=== PATIENT | male | born 1965 | race Two or more races ===

== ENCOUNTER 2024-03-13 13:53 | Inpatient (IN) | payer MEDICAID, OTHER ==
[~2024-03-13] VITALS: Ht 172.7 cm; Wt 73.9 kg
[2024-03-13 15:06] LABS: Basophils # (auto) 0.1 10 ^3/uL (0-0.2); Eosinophils % (auto) 0.4 % (0.0-7.0); Hemoglobin 13.8 g/dL (13.5-17.5); Monocytes # (auto) 1.3 10 ^3/uL (0-1.3)
[2024-03-13 15:07] LABS: Basophils % (auto) 0.5 % (0.0-2.0); Eosinophils # (auto) 0.1 10 ^3/uL (0-0.8); Hematocrit 42.8 % (41.0-53.0); Lymphocytes # (auto) 2.5 10 ^3/uL (0.4-5.4); Lymphocytes % (auto) 21.9 % (10.0-50.0); Mean Corpuscular Hemoglobin 26.1 pg (28.0-32.0); Mean Corpuscular Hgb Conc. 32.1 g/dL (32.0-36.0); Mean Corpuscular Volume 81.1 fL (80.0-100.0); Monocytes % (auto) 11.5 % (0.0-12.0); Neutrophils # (auto) 7.6 10 ^3/uL (1.6-8.6); Neutrophils % (auto) 65.7 % (37.0-80.0); Nucleated Red Blood Cells % 0.2 %; Red Blood Cells 5.28 10^6/uL (4.5-5.90); Red Cell Distribution Width 14.4 % (11.8-14.3); White Blood Cell 11.6 10^3/uL (4.4-10.8)
[2024-03-13 15:25] LABS: Alanine Aminotransferase 152 U/L (7-40); Albumin 3.8 g/dL (3.2-4.8); Alkaline Phosphatase 126 U/L (46-116); Anion Gap 6 (5-15); Aspartate Aminotransferase 159 U/L (13-40); BUN/Creatinine Ratio 9.7 (10.0-20.0); Bilirubin, Total 0.4 mg/dL (0.2-1.0); Blood Urea Nitrogen 9 mg/dL (9-23); Calcium 8.9 mg/dL (8.5-10.1); Carbon Dioxide 29 mmol/L (20-30); Chloride 98 mmol/L (98-107); Glucose 150 mg/dL (74-106); Potassium 4.3 mmol/L (3.5-5.1); Sodium 133 mmol/L (136-145); Total Protein 6.8 g/dL (5.7-8.2)
[2024-03-13 16:15] VITALS: PULSE 81; RESP 31; O2SAT 88
[2024-03-13] MEDS: ASPirin 81 mg TAB PO ONE (16:19)
[2024-03-13] MEDS: SODIUM CHLORIDE 0.9% 1,000 ML IV ONE (16:30)
[2024-03-13] MEDS: NITROGLYCERIN 2% OINT 1GM PKG TD ONE (17:20)
[2024-03-13 17:39] LABS: Amphetamine Screen, Urine Neg (NEGATIVE)
[2024-03-13 17:40] LABS: Barbiturate Scree,Urine Neg (NEGATIVE); Benzodiazephine Screen, Urine Neg (NEGATIVE); Cannabinoid Screen, Urine Neg (NEGATIVE); Cocaine Screen, Urine Neg (NEGATIVE); Opiate Scree,Urine Neg (NEGATIVE); Phencyclidine Screen, Urine Neg (NEGATIVE)
[2024-03-13 19:30] VITALS: PULSE 81; RESP 16; O2SAT 97
[2024-03-13] MEDS: IOHEXOL 350 MG/ML 100ML IJ ONE (20:15)
[2024-03-13] MEDS ORDERED: ONDANSETRON HCL 4 MG/2 ML VIAL IV PRN (22:00)
[2024-03-13] MEDS ORDERED: DOCUSATE SOD 100 MG CAP PO PRN (22:00)
[2024-03-13] MEDS: SODIUM CHLORIDE 0.9% 1,000 ML IV SCH (22:38)
[2024-03-13] MEDS: IBUPROFEN 600 MG TAB PO PRN (22:48)
[2024-03-13] MEDS ORDERED: MORPHINE SULFATE INJ 2 MG/ml SYRG IV PRN (23:15)
[2024-03-13] MEDS ORDERED: NITROGLYCERIN 0.4 MG SL TAB SL PRN (23:15)
[2024-03-14] VITALS (9 sets, daily range): BP systolic 97–114; BP diastolic 59–72; PULSE 64–94; RESP 14–19; TEMP 98–99.8; O2SAT 94–98
[2024-03-14] MEDS ORDERED: ACET1CAP14 PO (02:01)
[2024-03-14 06:14] LABS: Basophils # (auto) 0.1 10 ^3/uL (0-0.2); Basophils % (auto) 0.5 % (0.0-2.0); Hemoglobin 12.8 g/dL (13.5-17.5); Mean Corpuscular Hemoglobin 26.1 pg (28.0-32.0); Monocytes # (auto) 1.4 10 ^3/uL (0-1.3)
[2024-03-14 06:16] LABS: Eosinophils # (auto) 0 10 ^3/uL (0-0.8); Eosinophils % (auto) 0.4 % (0.0-7.0); Hematocrit 39.6 % (41.0-53.0); Lymphocytes # (auto) 2.4 10 ^3/uL (0.4-5.4); Lymphocytes % (auto) 20.7 % (10.0-50.0); Mean Corpuscular Hgb Conc. 32.3 g/dL (32.0-36.0); Mean Corpuscular Volume 80.7 fL (80.0-100.0); Monocytes % (auto) 12.5 % (0.0-12.0); Neutrophils # (auto) 7.5 10 ^3/uL (1.6-8.6); Neutrophils % (auto) 65.9 % (37.0-80.0); Nucleated Red Blood Cells % 0.1 %; Red Cell Distribution Width 14.4 % (11.8-14.3); White Blood Cell 11.5 10^3/uL (4.4-10.8)
[2024-03-14 06:45] LABS: Alanine Aminotransferase 146 U/L (7-40); Alkaline Phosphatase 114 U/L (46-116); Anion Gap 9 (5-15); Aspartate Aminotransferase 137 U/L (13-40); Blood Urea Nitrogen 7 mg/dL (9-23); Calcium 8.8 mg/dL (8.7-10.4); Carbon Dioxide 23 mmol/L (20-30); Chloride 103 mmol/L (98-107); Glucose 100 mg/dL (74-106); Potassium 4.1 mmol/L (3.5-5.1); Sodium 135 mmol/L (136-145)
[2024-03-14 06:46] LABS: Bilirubin, Total 0.5 mg/dL (0.2-1.0); Total Protein 6.5 g/dL (5.7-8.2)
[2024-03-14 06:49] LABS: Albumin 3.5 g/dL (3.2-4.8)
[2024-03-14] MEDS: ASPirin 81 mg TAB PO SCH (09:22)
[2024-03-15] VITALS (9 sets, daily range): BP systolic 100–114; BP diastolic 54–73; PULSE 64–92; RESP 16–20; TEMP 98.1–99; O2SAT 92–96
[2024-03-16 05:00] VITALS: BP 104/67; PULSE 95; RESP 20; TEMP 99.1; O2SAT 96
[2024-03-16 08:00] VITALS: BP 106/71; PULSE 82; PULSE 86; RESP 20; TEMP 98.2; O2SAT 93
[2024-03-16 12:00] VITALS: BP 112/68; PULSE 68; RESP 20; TEMP 98.8; O2SAT 95
[2024-03-16 16:00] VITALS: BP 108/59; PULSE 83; RESP 20; TEMP 99.3; O2SAT 94
[2024-03-16 20:00] VITALS: PULSE 84
[2024-03-16 21:00] VITALS: BP 99/60; PULSE 81; RESP 18; TEMP 97.7; O2SAT 95
[2024-03-17] VITALS (7 sets, daily range): BP systolic 95–112; BP diastolic 62–74; PULSE 75–89; RESP 18; TEMP 97.7–99; O2SAT 93–97
[2024-03-17] MEDS: HYDROcodone-ACET 5/325MG TAB PO PRN (21:28)
[2024-03-18] VITALS (7 sets, daily range): BP systolic 96–120; BP diastolic 56–88; PULSE 69–88; RESP 16–20; TEMP 97.5–98.9; O2SAT 95–98
[2024-03-19 01:00] VITALS: BP 107/66; PULSE 78; RESP 20; TEMP 97.7; O2SAT 97
[2024-03-19 05:00] VITALS: BP 109/77; PULSE 97; RESP 20; TEMP 97.9; O2SAT 96
[2024-03-19 07:30] LABS: Anion Gap 5 (5-15); Carbon Dioxide 27 mmol/L (20-30); Chloride 101 mmol/L (98-107); Potassium 4.7 mmol/L (3.5-5.1); Sodium 133 mmol/L (136-145)
[2024-03-19 07:32] LABS: Calcium 9.5 mg/dL (8.5-10.1)
[2024-03-19 07:34] LABS: Basophils # (auto) 0.1 10 ^3/uL (0-0.2); Eosinophils # (auto) 0 10 ^3/uL (0-0.8); Hemoglobin 12.9 g/dL (13.5-17.5); Monocytes # (auto) 0.7 10 ^3/uL (0-1.3)
[2024-03-19 07:36] LABS: Basophils % (auto) 0.7 % (0.0-2.0); Blood Urea Nitrogen 8 mg/dL (9-23); Eosinophils % (auto) 0.3 % (0.0-7.0); Glucose 116 mg/dL (74-106); Hematocrit 40.2 % (41.0-53.0); Lymphocytes # (auto) 2.1 10 ^3/uL (0.4-5.4); Lymphocytes % (auto) 18.4 % (10.0-50.0); Mean Corpuscular Hemoglobin 25.8 pg (28.0-32.0); Mean Corpuscular Hgb Conc. 32.1 g/dL (32.0-36.0); Mean Corpuscular Volume 80.2 fL (80.0-100.0); Monocytes % (auto) 6.2 % (0.0-12.0); Neutrophils # (auto) 8.4 10 ^3/uL (1.6-8.6); Neutrophils % (auto) 74.4 % (37.0-80.0); Nucleated Red Blood Cells % 0.4 %; Red Blood Cells 5.02 10^6/uL (4.5-5.90); Red Cell Distribution Width 14.4 % (11.8-14.3); White Blood Cell 11.3 10^3/uL (4.4-10.8)
[2024-03-19 08:00] VITALS: PULSE 78; RESP 19; O2SAT 100
[2024-03-19 08:55] VITALS: BP 103/67; PULSE 68; RESP 19; TEMP 98; O2SAT 100
[2024-03-19 12:34] VITALS: BP 108/76; PULSE 81; RESP 18; TEMP 98.3; O2SAT 96
[2024-03-19 12:53] VITALS: BP 108/76; PULSE 81; RESP 18; TEMP 98.3; O2SAT 96
== END 2024-03-19 13:50 | disposition home or self-care (01) | DRG 426 ==
LOC: ER 13:53 → TELE 23:03 → TELE-WESTW 23:03
PROVIDERS: ADMIT Nurse Practitioner Family; ATTEND Internal Medicine Pulmonary Disease
DX: E87.1 Hypo-osmolality and hyponatremia (principal); D72.829 Elevated white blood cell count, unspecified; R42 Dizziness and giddiness; K22.9 Disease of esophagus, unspecified; F17.200 Nicotine dependence, unspecified, uncomplicated; J98.11 Atelectasis; Z83.3 Family history of diabetes mellitus; Z79.899 Other long term (current) drug therapy
CPT/HCPCS: 36415; 70450; 70551; 71045; 71275; 80048; 80053; 80307; 82962; 83036; 83880; 84484; 85025; 85379; 93005; 93306; 96360; 96361; G0378

== ENCOUNTER 2024-09-29 17:12 | Inpatient (IN) | payer MEDICAID ==
[~2024-09-29] VITALS: Ht 172.7 cm; Wt 73.5 kg
[~2024-09-29 17:12] MED LIST: ACET1CAP14 PO
--- NOTE | 2024-09-29 18:06 | ED.PDOC ---
General HPI Comments HPI: Poor Historian. 58-year-old male presents to the emergency department with with three day history of dribbling in his urine and some urgency but he denies any associated pain. Patient denies any other acute symptoms. Patient is not on any medications. Past Medcial History: Denies any Past Surgical History: Denies any REVIEW OF SYSTEMS: CONSTITUTIONAL: Denies acute: fever, diaphoresis, chills, generalized weakness. HEAD: Denies acute: headache, photophobia Eyes: Denies acute: Double vision, vision loss, eye pain, eye discharge. EARS: Denies acute: tinnitus, hearing loss, ear discharge, ear pain, THROAT: Denies acute: sore throat, swelling, difficulty swallowing , pain with swallo wing, change in voice. NECK: Denies acute: neck pain, neck swelling, stiff neck. HEART: Denies acute : chest pain, palpitations, LUNGS: Denies acute: SOB, wheezing, cough, hemoptysis ABDOMEN: Denies acute: abdominal pain, Nausea, Vomiting, diarrhea, melena , hematemesis, hematochezia SKIN: Denies acute: rash, redness, lesions, itchiness. EXTREMITIES: Denies acute: calf pain, numbness, tingling, weakness, denies pain in extremity. Denies acute: Low back pain. Neuro: Denies acute: focal neurological deficit, motor or sensory focal neurological deficit, tremors, seizure like activity, confusion, dizziness, change in mental status, loss of bowel or bladder function, cauda equina like symptoms. : Denies acute: dysuria, hematuria, flank pain, PSYCH: Denies acute: hallucination, suicidal ideation, homicidal ideation. PHYSICAL EXAM: General: no acute distress, awake and alert. Head: normocephalic, atraumatic. Neck: supple, trachea is midline, no swelling. Throat: Normal phonation. Eyes:, no erythema, no purulent discharge, no proptosis, no icterus. Heart: regular rate, regular rhythm, no significant murmur appreciated. Lungs: no apparent respiratory distress, Able to speak in full sentences. No wheezing, no rhonchi, no crackles. No stridors Clear to auscultation bilaterally. Abdomen: non tender to palpation, non distended, soft, no guarding, no rebound, + bowel sounds. Neuro: Awake, Alert, oriented to name, self, situation, follows commands GCS=15. Speech is normal. Skin: no petechia, no purpura, no cyanosis, non-pale, not jaundice. Lower extremities: --no - Pitting edema no deformity, no focal swelling, no calf TTP. Makes eye contact. moves all four extremities. Face: no apparent facial droop. Ambulating in the ED independently. Chief Complaint: Urinary Time Seen by MD: 17:52 Primary Care Provider: NONE Reviewed notes: Nurses Notes, Allergies Allergies: Coded Allergies: NO KNOWN ALLERGIES (Unverified , 03/13/24) Home Meds Reported Medications Acetaminophen (Tylenol) 325 Mg Cap, 325 MG PO, CAP 03/14/24 Information Source: Patient Past Medical History PAST MEDICAL HISTORY: Denies Surgical History: Denies all surgeries Family History Family History: Unknown Social History Smoker: Non-Smoker Alcohol: Denies ETOH Use Drugs: Denies Drug Use Lives In: Home Was a procedure done? Was a procedure done?: No Differential Diagnosis Kidney stone (Female): N/A Urinary Problem (Male): Bladder Outlet, Bladder Obstruction, Epididymitis, Prostatitis, Plelonephritis, Post op Complications, Renal Failure, Urethritis, Urinary Retention, Urolithiasis, UTI X-Ray, Labs, Meds, VS Vital Signs Date Time Temp Pulse Resp B/P (MAP) Pulse Ox O2 Delivery O2 Flow Rate FiO2 09/29/24 18:00 98.0 89 18 151/93 (112) 97 Lab Test 09/29/24 19:43 Range/Units White Blood Count 23.1 H 4.4-10.8 10^3/uL Red Blood Count 4.69 4.5-5.90 10^6/uL Hemoglobin 12.9 L 13.5-17.5 g/dL Hematocrit 38.6 L 41.0-53.0 % Mean Corpuscular Volume 82.2 80.0-100.0 fL Mean Corpuscular Hemoglobin 27.6 L 28.0-32.0 pg Mean Corpuscular Hemoglobin Concent 33.5 32.0-36.0 g/dL Red Cell Distribution Width 13.8 11.8-14.3 % Platelet Count 143 140-450 10^3/uL Mean Platelet Volume 10.7 6.9-10.8 fL Neutrophils (%) (Auto) 87.8 H 37.0-80.0 % Lymphocytes (%) (Auto) 6.9 L 10.0-50.0 % Monocytes (%) (Auto) 5.2 0.0-12.0 % Eosinophils (%) (Auto) 0.0 0.0-7.0 % Basophils (%) (Auto) 0.1 0.0-2.0 % Neutrophils # (Auto) 20.3 H 1.6-8.6 10 ^3/uL Lymphocytes # (Auto) 1.6 0.4-5.4 10 ^3/uL Monocytes # (Auto) 1.2 0-1.3 10 ^3/uL Eosinophils # (Auto) 0 0-0.8 10 ^3/uL Basophils # (Auto) 0 0-0.2 10 ^3/uL Nucleated Red Blood Cells 0.0 % Sodium Level 121 L 136-145 mmol/L Potassium Level 4.5 3.5-5.1 mmol/L Chloride Level 89 L 98-107 mmol/L Carbon Dioxide Level 23 20-31 mmol/L Anion Gap 9 5-15 Blood Urea Nitrogen 15 9-23 mg/dL Creatinine 0.99 0.700-1.30 mg/dL Glomerular Filtration Rate Calc 87 >90 mL/min BUN/Creatinine Ratio 15.2 10.0-20.0 Serum Glucose 146 H 74-106 mg/dL Lactic Acid Level 1.8 0.4-2.0 mmol/L Calcium Level 9.8 8.7-10.4 mg/dL Total Bilirubin 1.0 0.2-1.0 mg/dL Aspartate Amino Transferase (AST) 40 13-40 U/L Alanine Aminotransferase (ALT) 34 7-40 U/L Alkaline Phosphatase 75 46-116 U/L Total Protein 7.5 5.7-8.2 g/dL Albumin 4.9 H 3.2-4.8 g/dL [address] [address] Ph: [phone] DIAGNOSTIC IMAGING Diagnostic Imaging Report : [id number] Signed PATIENT: JASE BAGLEYACCT: [id number] UNIT: [id number] : 1965 LOC: ER ROOM / BED: / AGE / SEX: 58 / M ADM STATUS: REG ER SERVICE 01 ORDERING PHYSICIAN: BRITANY ROBERTSON DO PROCEDURE(s): ABPL - CT AB PEL WO CON-NO ORAL OR IV REASON: decreased urniary output ORDER NUMBER(s): [id number], ACCESSION NUMBER(s): [id number] Exam: CT CT AB PEL WO CON-NO ORAL OR IV History: decreased urniary output Comparison Study: None Technique: Multidetector spiral CT of the abdomen and pelvis was performed from lung bases to pubic symphysis. Imaging was performed without IV contrast. Axial, coronal and sagittal multiplanar reformats were obtained from the axial data set by the technologist. Radiation dose : Abdomen/Pelvis: CTDIvol 10 mGy, DLP 616.31 mGy*cm. Findings: Evaluation of solid organs is limited due to lack of intravenous contrast use. Lung Bases: No acute or significant lung base finding. Normal heart size. No pleural or pericardial effusion. Liver: Left hepatic cyst. Gallbladder and biliary Tree: Unremarkable Spleen: Unremarkable Pancreas: The pancreas is grossly normal in appearance. Adrenal Glands: Unremarkable Kidneys: Moderate bilateral hydronephrosis. No nephrolithiasis. Bladder: Markedly distended. Bilateral large bladder diverticulum. Bowel: The stomach is grossly normal in appearance. Small bowel and colon are normal in caliber and distribution. The appendix is not visualized; however, no secondary findings of acute appendicitis identified. Ascites: Absent Lymphadenopathy: No mesenteric, retroperitoneal or periportal lymphadenopathy. Abdominal wall and Mesentery: Unremarkable. Vasculature: The visualized abdominal aorta is normal in size and caliber. Evaluation of abdominal and pelvic vessels is limited due to lack of intravenous contrast. Pelvic Organs: Prostate is enlarged. Musculoskeletal: No aggressive focal bony lesions, acute fractures or dislocation. IMPRESSION: 1. Markedly distended bladder. Bilateral bladder diverticula. Moderate hydronephrosis. Prostatomegaly. Consider bladder outlet obstruction. Left hepatic cyst. Radiation optimization: All CT scans at this facility use at least one of these dose optimization techniques: Automated exposure control mA and/or kV adjustment per patient size (includes targeted exams where dose is matched to clinical indication) or iterative reconstruction. HS:Y ATED BY: DARLINE ROBLES MD DICTATED DATE/TIME: 09/29/241842 SIGNED BY: DARLINE ROBLES MD SIGNED DATE/TIME: 09/29/241842 CC: Time of 1ST Reevaluation: 22:31 Reevaluation 1ST: Stable Patient Education/Counseling: Diagnosis, Treatment Family Education/Counseling: Diagnosis, Treatment Comments Patient presented with the above HPI.--urinary complaints----workup was init iated. patient was found with the above mentioned diagnosis. Patient was given: Fluids, Rocephin in the presence of leukocytosis, Witt catheter was ordered. Patient ED course and VS have been stabilized. Patient has been reassessed in the ED and remained in a stable condition. Pertinent incidental findings were discussed with the patient and/or family. Patient/family voices understanding and is agreeable with plan. Patient has been observed in the ED adequate length of time to insure improvement/stability. patient was admitted to the medicine team for further evaluation and treatment of their presentation. All the reports of any imaging studies that were ordered by myself were reviewed by myself. Departure 1 Departure Time of Disposition: 19:14 Impression: Primary Impression: Acute urinary retention Additional Impressions: Hydronephrosis Enlarged prostate Hepatic cyst Leukocytosis, unspecified Hyponatremia Disposition: ADMITTED INPATIENT Condition: Guarded Discharged With: Self Critical Care Note Critical Care Time?: Yes (45 min-critical care time only) Heart Score Heart Score: Heart Score Response (Comments) Value History N/A 0 EKG N/A 0 Age N/A 0 Risk Factors N/A 0 Troponin N/A 0 Total 0 BRITANY ROBERTSON DO Sep 29, 2024 18:06
--- NOTE | 2024-09-29 18:45 | DVH ---
Exam: CT CT AB PEL WO CON-NO ORAL OR IV History: decreased urniary output Comparison Study: None Technique: Multidetector spiral CT of the abdomen and pelvis was performed from lung bases to pubic symphysis. Imaging was performed without IV contrast. Axial, coronal and sagittal multiplanar reform ats were obtained from the axial data set by the technologist. Radiation dose : Abdomen/Pelvis: CTDIvol 10 mGy, DLP 616.31 mGy*cm. Findings: Evaluation of solid organs is limited due to lack of intravenous contrast use. Lung Bases: No acute or significant lung base finding. Normal heart size. No pleural or pericardial effusion. Liver: Left hepatic cyst. Gallbladder and biliary Tree: Unremarkable Spleen: Unremarkable Pancreas: The pancreas is grossly normal in appearance. Adrenal Glands: Unremarkable Kidneys: Moderate bilateral hydronephrosis. No nephrolithiasis. Bladder: Markedly distended. Bilateral large bladder diverticulum. Bowel: The stomach is grossly normal in appearance. Small bowel and colon are normal in caliber and d istribution. The appendix is not visualized; however, no secondary findings of acute appendicitis id entified. Ascites: Absent Lymphadenopathy: No mesenteric, retroperitoneal or periportal lymphadenopathy. Abdominal wall and Mesentery: Unremarkable. Vasculature: The visualized abdominal aorta is normal in size and caliber. Evaluation of abdominal a nd pelvic vessels is limited due to lack of intravenous contrast. Pelvic Organs: Prostate is enlarged. Musculoskeletal: No aggressive focal bony lesions, acute fractures or dislocation. IMPRESSION: 1. Markedly distended bladder. Bilateral bladder diverticula. Moderate hydronephrosis. Prostatomeg jesu. Consider bladder outlet obstruction. Left hepatic cyst. Radiation optimization: All CT scans at this facility use at least one of these dose optimization almaz hniques: Automated exposure control mA and/or kV adjustment per patient size (includes targeted exams where dose is matched to clinical indication) or iterative reconstruction. HS:Y
[2024-09-29 20:10] LABS: Basophils # (auto) 0 10 ^3/uL (0-0.2); Basophils % (auto) 0.1 % (0.0-2.0); Eosinophils # (auto) 0 10 ^3/uL (0-0.8); Hematocrit 38.6 % (41.0-53.0); Hemoglobin 12.9 g/dL (13.5-17.5); Lymphocytes # (auto) 1.6 10 ^3/uL (0.4-5.4); Lymphocytes % (auto) 6.9 % (10.0-50.0); Mean Corpuscular Hemoglobin 27.6 pg (28.0-32.0); Mean Corpuscular Hgb Conc. 33.5 g/dL (32.0-36.0); Mean Corpuscular Volume 82.2 fL (80.0-100.0); Monocytes # (auto) 1.2 10 ^3/uL (0-1.3); Monocytes % (auto) 5.2 % (0.0-12.0); Neutrophils # (auto) 20.3 10 ^3/uL (1.6-8.6); Neutrophils % (auto) 87.8 % (37.0-80.0); Platelet Count (auto) 143 10^3/uL (140-450); Red Blood Cells 4.69 10^6/uL (4.5-5.90); Red Cell Distribution Width 13.8 % (11.8-14.3); White Blood Cell 23.1 10^3/uL (4.4-10.8)
[2024-09-29 20:27] LABS: Alanine Aminotransferase 34 U/L (7-40); Albumin 4.9 g/dL (3.2-4.8); Alkaline Phosphatase 75 U/L (46-116); Anion Gap 9 (5-15); Aspartate Aminotransferase 40 U/L (13-40); BUN/Creatinine Ratio 15.2 (10.0-20.0); Blood Urea Nitrogen 15 mg/dL (9-23); Calcium 9.8 mg/dL (8.7-10.4); Carbon Dioxide 23 mmol/L (20-31); Chloride 89 mmol/L (98-107); Glucose 146 mg/dL (74-106); Potassium 4.5 mmol/L (3.5-5.1); Sodium 121 mmol/L (136-145); Total Protein 7.5 g/dL (5.7-8.2)
[2024-09-29] MEDS: ENOXAPARIN SOD 40 MG/0.4 ML SYRINGE SC SCH (21:00)
[2024-09-29] MEDS ORDERED: MORPHINE SULFATE INJ 2 MG/ml SYRG IV PRN ×2 (21:00)
[2024-09-29] MEDS ORDERED: NITROGLYCERIN 0.4 MG SL TAB SL PRN (21:00)
[2024-09-29] MEDS ORDERED: ONDANSETRON HCL 4 MG/2 ML VIAL IV PRN ×2 (21:00→23:00)
[2024-09-29] MEDS: SODIUM CHLOR 0.9% PF (SALINE LOCK) 10ML VIAL/SYR IV SCH (22:00)
[2024-09-29] MEDS: SODIUM CHLORIDE 0.9% 1,000 ML IV ONE (22:30)
--- NOTE | 2024-09-29 23:08 | DVHHPRES ---
History of Present Illness Resident Creating Document: MOUSTAPHA BRANCH RESIDENT History of Present Illness Patient is 58 years old male with no significant past medical history came with a complaint of dysuria and dribbling of urine for 3 days. As per patient and his daughter patient has been having dysuria for last 3 days. Patient also reported difficulty in urination, urgency, frequency, hesitancy and also dribbling of urine for the same duration. Patient also had urine incontinence while waiting in the ER. Patient also reported constipation last few days. Patient denied any fever, diarrhea, chest pain, shortness of breath, acute joint pain or swelling, dysarthria. Initial lab workup revealed leukocytosis WBC 23.1, hyponatremia sodium 121. Patient also reported 1 episode of vomiting after coming to the hospital which was watery, no blood. CT abdomen and pelvis revealed-Markedly distended bladder. Bilateral bladder diverticula. Moderate hydronephrosis. Prostatomegaly. Consider bladder outlet obstruction. Left hepatic cyst. Witt's catheter was inserted and drained 2000 mL of urine shortly after catheterization. Past Medical History No significant past medical history Past Surgical History No significant past surgical history Family History None Past Social History Lives with family No PCP Patient and daughter reported he not taking any medication at home Review of Systems Review of Systems Personal history-family, denies smoking/alcoholism/drug abuse Drug allergy-NKDA FH-No significant past family history Patient was seen today at the bedside. Patient reported feeling dizzy, 1 episode of vomiting Cardiovascular- deny acute chest pain or shortness of breath or cough or palpitation Respiratory- denies cough or short of breath or wheezing Gastrointestinal- denies any rectal bleeding Musculoskeletal-denies acute joint swelling or tenderness or redness Neurological- denies acute dysarthria, dysphagia, change in vision Psychiatry- denies depression or SI or HI Skin- denies acute rash or purpura Allergies: Coded Allergies: NO KNOWN ALLERGIES (Unverified , 03/13/24) Medications Current Medications Medications Dose Ordered Sig/Constantin Route Start Time Stop Time Status Last Admin Dose Admin Sodium Chloride 10 ml Q8HR IV 09/29/24 22:00 Ondansetron HCl 4 mg Q4HP PRN IV 09/29/24 21:00 Acetaminophen 650 mg Q6HP PRN PO 09/29/24 21:00 Morphine Sulfate 2 mg Q4HPRN PRN IV 09/29/24 21:00 Enoxaparin Sodium 40 mg DAILY SC 09/29/24 21:00 Nitroglycerin 0.4 mg Q5MINP PRN SL 09/29/24 21:00 Morphine Sulfate 2 mg Q30M PRN IV 09/29/24 21:00 Ceftriaxone Sodium 50 ml @ 100 mls/hr DAILY@09 IV 09/30/24 09:00 Ondansetron HCl 4 mg Q6HPRN PRN IV 09/29/24 23:00 UNV Exam Vital Signs Vital Signs Date Time Temp Pulse Resp B/P (MAP) Pulse Ox O2 Delivery O2 Flow Rate FiO2 09/29/24 18:00 98.0 89 18 151/93 (112) 97 Exam General examination- awake, alert, oriented, conversant HEENT- PEERLA, no acute nasal discharge Cardiovascular- S1-S2 audible, rate and rhythm regular, no murmur Respiratory- CTAB, no wheeze or rhonchi Gastrointestinal- Lower abdominal distention with tenderness, bowel sound+. Genitourinary-noted on angle tenderness Musculoskeletal-no acute joint swelling or tenderness or redness# Lower extremity- no leg edema Neurological- cranial nerves intact, no acute dysarthria or dysphagia Psychiatry- denies depression or SI or HI Skin- no acute rash or purpura Labs/Xrays Labs Test 09/29/24 19:43 Range/Units White Blood Count 23.1 H 4.4-10.8 10^3/uL Red Blood Count 4.69 4.5-5.90 10^6/uL Hemoglobin 12.9 L 13.5-17.5 g/dL Hematocrit 38.6 L 41.0-53.0 % Mean Corpuscular Volume 82.2 80.0-100.0 fL Mean Corpuscular Hemoglobin 27.6 L 28.0-32.0 pg Mean Corpuscular Hemoglobin Concent 33.5 32.0-36.0 g/dL Red Cell Distribution Width 13.8 11.8-14.3 % Platelet Count 143 140-450 10^3/uL Mean Platelet Volume 10.7 6.9-10.8 fL Neutrophils (%) (Auto) 87.8 H 37.0-80.0 % Lymphocytes (%) (Auto) 6.9 L 10.0-50.0 % Monocytes (%) (Auto) 5.2 0.0-12.0 % Eosinophils (%) (Auto) 0.0 0.0-7.0 % Basophils (%) (Auto) 0.1 0.0-2.0 % Neutrophils # (Auto) 20.3 H 1.6-8.6 10 ^3/uL Lymphocytes # (Auto) 1.6 0.4-5.4 10 ^3/uL Monocytes # (Auto) 1.2 0-1.3 10 ^3/uL Eosinophils # (Auto) 0 0-0.8 10 ^3/uL Basophils # (Auto) 0 0-0.2 10 ^3/uL Nucleated Red Blood Cells 0.0 % Sodium Level 121 L 136-145 mmol/L Potassium Level 4.5 3.5-5.1 mmol/L Chloride Level 89 L 98-107 mmol/L Carbon Dioxide Level 23 20-31 mmol/L Anion Gap 9 5-15 Blood Urea Nitrogen 15 9-23 mg/dL Creatinine 0.99 0.700-1.30 mg/dL Glomerular Filtration Rate Calc 87 >90 mL/min BUN/Creatinine Ratio 15.2 10.0-20.0 Serum Glucose 146 H 74-106 mg/dL Lactic Acid Level 1.8 0.4-2.0 mmol/L Calcium Level 9.8 8.7-10.4 mg/dL Total Bilirubin 1.0 0.2-1.0 mg/dL Aspartate Amino Transferase (AST) 40 13-40 U/L Alanine Aminotransferase (ALT) 34 7-40 U/L Alkaline Phosphatase 75 46-116 U/L Total Protein 7.5 5.7-8.2 g/dL Albumin 4.9 H 3.2-4.8 g/dL Assessment/Plan Assessment/Plan #Acute retention of urine likely due to benign enlargement of the prostate -CT scan of the abdomen and and pelvis revealed-Markedly distended bladder. Bilateral bladder diverticula. Moderate hydronephrosis. Prostatomegaly. -patient on Witt's catheter, drained 1800 mL of urine after catheterization -ordered Urology consult -strict intake output -monitor CBC, CMP -continue Flomax 0.4 mg p.o. q.d. -continue finasteride 5 mg p.o. daily #Dysuria, dribbling of urine, urgency, hesitancy, urinary frequency likely due to UTI with BPH --CT scan of the abdomen and and pelvis revealed-Markedly distended bladder. Bilateral bladder diverticula. Moderate hydronephrosis. Prostatomegaly. -continue ceftriaxone 1 g IV daily --patient on Witt's catheter, drained 2000 mL of urine after catheterization -ordered Urology consult -strict intake output -monitor CBC, CMP --continue Flomax 0.4 mg p.o. q.d. -continue finasteride 5 mg p.o. daily #Benign enlargement of the prostate --CT scan of the abdomen and and pelvis revealed-Markedly distended bladder. Bilateral bladder diverticula. Moderate hydronephrosis. Prostatomegaly. --patient on Witt's catheter, drained 2000 mL of urine after catheterization -ordered Urology consult -strict intake output -monitor CBC, CMP --continue Flomax 0.4 mg p.o. q.d. -continue finasteride 5 mg p.o. daily #Suspected UTI -patient with Dysuria, dribbling of urine, urgency, hesitancy, urinary frequency --continue ceftriaxone 1 gm qd # bilateral hydronephrosis likely due to acute retention of urine due to BPH --CT scan of the abdomen and and pelvis revealed-Markedly distended bladder. Bilateral bladder diverticula. Moderate hydronephrosis. Prostatomegaly. #Hyponatremia likely due to vomiting -Na-121 -continue normal saline 100 mL/hour -monitor CBC, CMP -patient on telemetry # nausea and vomiting likely due to UTI -- zofran prn #Bilateral bladder diverticul likely due to acute retention of urine due to BPH --CT scan of the abdomen and and pelvis revealed-Markedly distended bladder. Bilateral bladder diverticula. Moderate hydronephrosis. Prostatomegaly. -patient on Witt's catheter, drained 2000 mL of urine after catheterization -ordered Urology consult -strict intake output -monitor CBC, CMP #Leukocytosis likely due to UTI --continue ceftriaxone 1 g IV daily --patient on Witt's catheter, drained 2000 mL of urine after catheterization -ordered Urology consult -strict intake output -monitor CBC, CMP # Left hepatic cyst -incidental finding on CT abdomen Goals of care/advance care planning; FULL CODE; discussed with the patient >15 minutes PUD prophylaxis: DVT prophylaxis: Patient ambulating Plan discussed with Dr. Giang, nursing staff, patient Total time spent on patient evaluation, chart review, assessment and plan, discussion discussion >20 minutes Plan discussed with: Patient Plan discussed with: Patient, Daughter, Other (RN) My Orders Orders - MOUSTAPHA BRANCH Procedure Category Date Status Time Admit ADMIT 09/29/24 Transmitted 20:48 Allergies ALEKS 09/29/24 In Process 20:48 Renal DIET 09/30/24 Transmitted Standard(2gna,3gk,Lopho) Breakfast Sodium Chloride Lock PHA 09/29/24 In Process (Saline Lock Ns) 22:00 Ondansetron Hcl PHA 09/29/24 In Process (Zofran) 21:00 Complete Blood Count LAB 09/30/24 Verified 04:00 Comprehensive LAB 09/30/24 Verified Metabolic Panel 04:00 Cardiac DIET 09/30/24 Transmitted Diet-2gna,Lofat,Lochol Breakfast Acetaminophen Tablet PHA 09/29/24 In Process (Tylenol Tablet) 21:00 Morphine Sulfate PHA 09/29/24 In Process Injection 21:00 Enoxaparin Sodium PHA 09/29/24 In Process (Lovenox) 21:00 Nitroglycerin PHA 09/29/24 In Process Sublingual (Ntrostat 21:00 Morphine Sulfate PHA 09/29/24 In Process Injection 21:00 Oxygen By Nasal RT 09/29/24 Transmitted Cannula 20:48 Stat Ekg For Chest [facility] 09/29/24 In Process Pain 20:48 Notify Of Changes [facility] 09/29/24 In Process From Base 20:48 Seasonal Warehouse Associate For [facility] 09/29/24 In Process 24 Hours 20:48 Emergency Dysrhythmia [facility] 09/29/24 In Process Protocol 20:48 Rhythm Strips Once [facility] 09/29/24 In Process Every Shift 20:48 Ondansetron Hcl PHA 09/29/24 Logged (Zofran) 23:00 Witt Catheters ED NURSING 09/29/24 Transmitted Date of Service: Sep 29, 2024 Billing Provider: RAVEN GIANG MD Common Visit Codes: [id number] INP/OBS CARE (HIGH) MOUSTAPHA BRANCH Sep 29, 2024 23:08 RAVEN GIANG MD Sep 30, 2024 10:30
[2024-09-30] VITALS (7 sets, daily range): BP systolic 86–109; BP diastolic 39–56; PULSE 79–102; RESP 14–20; TEMP 98.6–98.8; O2SAT 91–99
[2024-09-30] MEDS: ONDANSETRON HCL 4 MG/2 ML VIAL IV ONE (00:43)
[2024-09-30] MEDS: MAGNESIUM SULFATE 1GM/100ML 100 ML IV ONE (01:20)
[2024-09-30 04:22] LABS: Basophils # (auto) 0 10 ^3/uL (0-0.2); Basophils % (auto) 0.2 % (0.0-2.0); Eosinophils # (auto) 0 10 ^3/uL (0-0.8); Hematocrit 38.3 % (41.0-53.0); Hemoglobin 12.8 g/dL (13.5-17.5); Lymphocytes # (auto) 1.6 10 ^3/uL (0.4-5.4); Lymphocytes % (auto) 10.3 % (10.0-50.0); Mean Corpuscular Hemoglobin 27.3 pg (28.0-32.0); Mean Corpuscular Hgb Conc. 33.4 g/dL (32.0-36.0); Mean Corpuscular Volume 81.6 fL (80.0-100.0); Monocytes % (auto) 6.7 % (0.0-12.0); Neutrophils # (auto) 12.7 10 ^3/uL (1.6-8.6); Neutrophils % (auto) 82.8 % (37.0-80.0); Platelet Count (auto) 140 10^3/uL (140-450); Red Blood Cells 4.68 10^6/uL (4.5-5.90); Red Cell Distribution Width 14.1 % (11.8-14.3); White Blood Cell 15.3 10^3/uL (4.4-10.8)
[2024-09-30 04:40] LABS: Alanine Aminotransferase 33 U/L (7-40); Albumin 4.5 g/dL (3.2-4.8); Alkaline Phosphatase 66 U/L (46-116); Anion Gap 8 (5-15); Aspartate Aminotransferase 43 U/L (13-40); BUN/Creatinine Ratio 16.7 (10.0-20.0); Bilirubin, Total 1.1 mg/dL (0.2-1.0); Blood Urea Nitrogen 15 mg/dL (9-23); Carbon Dioxide 25 mmol/L (20-31); Chloride 103 mmol/L (98-107); Glucose 126 mg/dL (74-106); Potassium 4.5 mmol/L (3.5-5.1)
[2024-09-30 04:50] LABS: Sodium 136 mmol/L (136-145)
[2024-09-30] MEDS ORDERED: D5W 5% 1,000 ML IV SCH (07:00)
[2024-09-30 07:51] LABS: Urine Bacteria None Seen /hpf (None Seen)
--- NOTE | 2024-09-30 07:54 | DVHINCON2 ---
Date of service: Sep 30, 2024 Referring Physician Hospitalist Reason for Consultation urinary retention History of Present Illness History Source: Patient, RN Notes, MD Notes Exam Limitations: No limitations HPI 58-year-old male presents to the emergency department with with three day history of dribbling in his urine and some urgency but he denies any associated pain. Patient denies any other acute symptoms. Patient is not on any medications. Home Meds Reported Medications Acetaminophen (Tylenol) 325 Mg Cap, 325 MG PO, CAP 03/14/24 Past Medical History Patient Family History: Diabetes mellitus G8 BROTHER G8 SISTER Review of Systems Genitourinary: Dysuria, Frequency, Retention, Pain H&P Exam Vital Signs Vital Signs Date Time Temp Pulse Resp B/P (MAP) Pulse Ox O2 Delivery O2 Flow Rate FiO2 09/30/24 07:07 89 10 92/54 (67) 09/30/24 03:00 92 09/30/24 01:46 Room Air* 0 21 09/29/24 23:25 98.3 98.3 General Appeara: Well developed, Well nourished, Normal Appearance Pulmonary/Respiratory: Normal inspection, Normal breath sounds, Chest non- tender, Lungs clear Cardiovascular/Chest: Normal inspection, Regular rate, Normal Rhythm Abdominal Exam: Normal bowel sounds, Soft, No tenderness, No hepatospenomegaly, No masses Rectal Exam: Deferred Back Exam: Normal inspection Male Genital Exam: Normal genitalia Neuro/Mental St: Alert, Oriented Appearance: Appropriate appearance, Appropriate insight Eye contact/ Speech: Cooperative, Good eye contact, Normal speech Skin Exam: Normal inspection, Normal color, Warm/dry Labs/Xrays [place] [address] Ph: [phone] DIAGNOSTIC IMAGING Diagnostic Imaging Report : [id number] Signed PATIENT: JASE BAGLEYACCT: [id number] UNIT: [id number] : 1965 LOC: ER ROOM / BED: / AGE / SEX: 58 / M ADM STATUS: REG ER SERVICE 01 ORDERING PHYSICIAN: BRITANY ROBERTSON DO PROCEDURE(s): ABPL - CT AB PEL WO CON-NO ORAL OR IV REASON: decreased urniary output ORDER NUMBER(s): [id number], ACCESSION NUMBER(s): [id number] Exam: CT CT AB PEL WO CON-NO ORAL OR IV History: decreased urniary output Comparison Study: None Technique: Multidetector spiral CT of the abdomen and pelvis was performed from lung bases to pubic symphysis. Imaging was performed without IV contrast. Axial, coronal and sagittal multiplanar reformats were obtained from the axial data set by the technologist. Radiation dose : Abdomen/Pelvis: CTDIvol 10 mGy, DLP 616.31 mGy*cm. Findings: Evaluation of solid organs is limited due to lack of intravenous contrast use. Lung Bases: No acute or significant lung base finding. Normal heart size. No pleural or pericardial effusion. Liver: Left hepatic cyst. Gallbladder and biliary Tree: Unremarkable Spleen: Unremarkable Pancreas: The pancreas is grossly normal in appearance. Adrenal Glands: Unremarkable Kidneys: Moderate bilateral hydronephrosis. No nephrolithiasis. Bladder: Markedly distended. Bilateral large bladder diverticulum. Bowel: The stomach is grossly normal in appearance. Small bowel and colon are normal in caliber and distribution. The appendix is not visualized; however, no secondary findings of acute appendicitis identified. Ascites: Absent Lymphadenopathy: No mesenteric, retroperitoneal or periportal lymphadenopathy. Abdominal wall and Mesentery: Unremarkable. Vasculature: The visualized abdominal aorta is normal in size and caliber. Ev aluation of abdominal and pelvic vessels is limited due to lack of intravenous contrast. Pelvic Organs: Prostate is enlarged. Musculoskeletal: No aggressive focal bony lesions, acute fractures or dislocation. IMPRESSION: 1. Markedly distended bladder. Bilateral bladder diverticula. Moderate hydronephrosis. Prostatomegaly. Consider bladder outlet obstruction. Left hepatic cyst. Radiation optimization: All CT scans at this facility use at least one of these dose optimization techniques: Automated exposure control mA and/or kV adjustment per patient size (includes targeted exams where dose is matched to clinical indication) or iterative reconstruction. HS:Y ATED BY: GREGORY ROBLES MD DICTATED DATE/TIME: 09/29/241842 SIGNED BY: GREGORY ROBLES MD SIGNED DATE/TIME: 09/29/241842 CC: Labs Test 09/30/24 04:07 09/29/24 19:43 Range/Units White Blood Count 15.3 #H 4.4-10.8 10^3/uL Red Blood Count 4.68 4.5-5.90 10^6/uL Hemoglobin 12.8 L 13.5-17.5 g/dL Hematocrit 38.3 L 41.0-53.0 % Mean Corpuscular Volume 81.6 80.0-100.0 fL Mean Corpuscular Hemoglobin 27.3 L 28.0-32.0 pg Mean Corpuscular Hemoglobin Concent 33.4 32.0-36.0 g/dL Red Cell Distribution Width 14.1 11.8-14.3 % Platelet Count 140 140-450 10^3/uL Mean Platelet Volume 10.2 6.9-10.8 fL Neutrophils (%) (Auto) 82.8 H 37.0-80.0 % Lymphocytes (%) (Auto) 10.3 10.0-50.0 % Monocytes (%) (Auto) 6.7 0.0-12.0 % Eosinophils (%) (Auto) 0.0 0.0-7.0 % Basophils (%) (Auto) 0.2 0.0-2.0 % Neutrophils # (Auto) 12.7 H 1.6-8.6 10 ^3/uL Lymphocytes # (Auto) 1.6 0.4-5.4 10 ^3/uL Monocytes # (Auto) 1.0 0-1.3 10 ^3/uL Eosinophils # (Auto) 0 0-0.8 10 ^3/uL Basophils # (Auto) 0 0-0.2 10 ^3/uL Nucleated Red Blood Cells 0.0 % Sodium Level 136 # 136-145 mmol/L Potassium Level 4.5 3.5-5.1 mmol/L Chloride Level 103 # 98-107 mmol/L Carbon Dioxide Level 25 20-31 mmol/L Anion Gap 8 5-15 Blood Urea Nitrogen 15 9-23 mg/dL Creatinine 0.90 0.700-1.30 mg/dL Glomerular Filtration Rate Calc 98 >90 mL/min BUN/Creatinine Ratio 16.7 10.0-20.0 Serum Glucose 126 H 74-106 mg/dL Hemoglobin A1c 6.1 H <5.7 % A1C Calcium Level 10.0 8.7-10.4 mg/dL Total Bilirubin 1.1 H 0.2-1.0 mg/dL Aspartate Amino Transferase (AST) 43 H 13-40 U/L Alanine Aminotransferase (ALT) 33 7-40 U/L Alkaline Phosphatase 66 46-116 U/L Total Protein 7.0 5.7-8.2 g/dL Albumin 4.5 3.2-4.8 g/dL Lactic Acid Level 1.8 0.4-2.0 mmol/L Magnesium Level 1.6 1.6-2.6 mg/dL Plasma/Serum Blood Alcohol < 3.0 <10 mg/dL Assessment/Plan Problem List: (1) Acute urinary retention (2) Enlarged prostate Plan d/c home with zambrano outpt cystoscopy TBA Plan discussed with: Patient, Other REGINA BROWN NP Sep 30, 2024 07:54
[2024-09-30 08:26] LABS: Urine Blood 1+ /uL (Negative); Urine Clarity Clear (Clear); Urine Color Colorless (Yellow); Urine Protein, UAD Negative (Negative); Urine Specific Gravity 1.004 (1.001-1.035); Urine Urobilinogen Normal (Negative); Urine WBC <1 /hpf (0 - 3)
[2024-09-30] MEDS: cefTRIAXone 1GM/50ML D5W 50 ML IV SCH (08:33)
[2024-09-30 08:35] LABS: Protein, Urine 6.4 mg/dL (1-14)
[2024-09-30 08:37] LABS: Amphetamine Screen, Urine Neg (NEGATIVE); Creatinine, Urine 16.37 mg/dL (30.0-125.0); Urine Protein/Creatinine Ratio 0.39
[2024-09-30 08:38] LABS: Barbiturate Scree,Urine Neg (NEGATIVE); Benzodiazephine Screen, Urine Neg (NEGATIVE); Cannabinoid Screen, Urine Neg (NEGATIVE); Cocaine Screen, Urine Neg (NEGATIVE); Opiate Scree,Urine Neg (NEGATIVE); Phencyclidine Screen, Urine Neg (NEGATIVE)
[2024-09-30] MEDS: LACTATED RINGER'S 1,000 ML IV ONE (09:05)
[2024-09-30] MEDS: FINASTERIDE 5 MG TAB PO SCH (10:56)
[2024-09-30 13:50] LABS: Anion Gap 7 (5-15); Carbon Dioxide 28 mmol/L (20-31); Chloride 105 mmol/L (98-107); Sodium 140 mmol/L (136-145)
[2024-09-30 13:56] LABS: BUN/Creatinine Ratio 16.2 (10.0-20.0); Blood Urea Nitrogen 16 mg/dL (9-23); Glucose 110 mg/dL (74-106)
[2024-09-30] MEDS: D5W 5% 1,000 ML IV ONE ×2 (14:56→22:27)
[2024-09-30] MEDS: TAMSULOSIN HYDROCHLORIDE 0.4 MG CAP PO SCH (18:05)
--- NOTE | 2024-09-30 18:31 | DVHPNRES ---
Progress Note Date Seen: Sep 30, 2024 Resident Creating Document: BONY ARIZMENDIYULY RESIDENT Medical Necessity Reason Pt with a Central, PICC or Fol: Yes The following are medically ne: Witt Catheter Subjective Review of Systems Patient is a 58-year-old male with no significant past medical history presented to the ER with a chief complaint of pain on urination and hesitancy and dribbling for the past 3-4 days. The patient reported that he had difficulty initiating urination, frequency, hesitancy, nocturia, dribbling of urine and he was more able to pass only small amount of urine even after straining for a long period. Patient also reported constipation the last few days. Patient denied fever, chills, nausea, vomiting, patient had large suprapubic distention of the bladder. Abdominal pelvic CT showed markedly distended bladder with bilateral large bladder diverticulum , moderate hydronephrosis, prostatomegaly. Witt's catheter was inserted which drained 2000 mL of urine shortly after catheterization. Past medical history: No significant Past surgical history: No significant Family history: None Social history: Lives with family, no PCP, no medication at home, no smoking alcohol drug use Review of symptoms Patient was seen and examined at the bedside. Patient was alert and oriented to time, place and person and responding to all questions appropriately. Patient had a urine output of about 7.5 L up to the time of examination in the morning at 9:00 a.m. patient's serum sodium on admission was 121 millimole/L which improved to 136 mmol/L. Patient was given a bolus of Ringer's lactate 1 L. serum sodium was repeated at 1:00 p.m. which resulted at 140 mmoll/L following which patient was given D5 W 1 L at 150 mL/hour. Repeat serum sodium check has been scheduled for 9:00 p.m. Objective vital signs Vital Sign Date Time Temp Pulse Resp B/P (MAP) Pulse Ox O2 Delivery O2 Flow Rate FiO2 09/30/24 17:00 98.6 102 18 109/56 (73) 94 98.6 09/30/24 16:55 Room Air* 0 21 Total Intake and Output 09/29/24 09/29/24 09/30/24 15:00 23:00 07:00 Intake Total 200 ml Output Total 8750 ml Balance -8550 ml medications Current Medications Medications Dose Ordered Sig/Constantin Route Start Time Stop Time Status Last Admin Dose Admin Sodium Chloride 10 ml Q8HR IV 09/29/24 22:00 09/30/24 14:04 10 ML Acetaminophen 650 mg Q6HP PRN PO 09/29/24 21:00 Morphine Sulfate 2 mg Q4HPRN PRN IV 09/29/24 21:00 Enoxaparin Sodium 40 mg DAILY SC 09/29/24 21:00 09/30/24 10:56 40 MG Nitroglycerin 0.4 mg Q5MINP PRN SL 09/29/24 21:00 Morphine Sulfate 2 mg Q30M PRN IV 09/29/24 21:00 Ceftriaxone Sodium 50 ml @ 100 mls/hr DAILY@09 IV 09/30/24 09:00 09/30/24 08:33 100 MLS/HR Ondansetron HCl 4 mg Q6HPRN PRN IV 09/29/24 23:00 Tamsulosin HCl 0.4 mg QPM PO 09/30/24 18:00 09/30/24 18:05 0.4 MG Finasteride 5 mg DAILY PO 10/01/24 10:00 Examination Physical Examination Gen - no pallor, no icterus, no cyanosis, no clubbing, no LAD, no edema . Skin - Patients skin is warm and dry. HEENT - normocephalic, atraumatic, moist mucous membranes. Neck - full ROM, no LAD, no JVD. Pulmonary - B/L vesicular breath sounds. no crackles , no wheezing, no stridor. cardiovascular - normal S1,S2 heard. no murmurs heard. peripheral pulses normal radial 2+, pedal 2+. capillary refill normal <2 secs. GI - soft abdomen without tenderness to palpation . no hepatospleenomegaly. Bowel sounds normoactive Neurological - Patient is A/O X 3 . Bilateral upper extremity strength 5/5, bilateral lower extremity strength 5/5, no facial droop, normal speech, no tremor, no sensory deficiets. Rectal examination- nontender, firm swelling felt in the anterior anterior wall of the anal canal laboratory and microbiology Laboratory Tests 09/30/24 13:08 09/30/24 04:07 Test 09/30/24 13:08 Range/Units Serum Glucose 110 H 74-106 mg/dL Problem List/Assessment/Plan Problem List/Assessment/Plan Assessment and plan # Acute urinary retention due to BPH # bilateral bladder diverticula # bilateral hydronephrosis - CT abdomen pelvis without contrast showed markedly distended bladder, bilateral bladder diverticula, moderate hydronephrosis, prostatomegaly - Witt's catheter inserted following which about 7000 mL of urine was removed in a controlled manner -continued on Witt's catheter # ?UTI -leukocytosis seen -patient is started on ceftriaxone 1 g IV daily - WBC count improving - urine culture pending # Enlarged prostate likely BPH - firm, nontender mass felt on rectal exam - CT abdomen pelvis findings as above - free PSA and total PSA pending - urology consult who recommended discharging patient home with Witt's and outpatient follow up for cystoscopy # Hyponatremia - on admission patient had serum sodium 121 which increased to 136 following insertion of Witt catheter and removal of about 7 L of urine. - patient had large urine output and was mildly hypotensive with SBP in the 90s - ringer lactate 1 L bolus given - sodium recheck at 1:00 p.m. was at 140 following which 1 L of D5W at 150 mL/hour given - recheck sodium at 9:00 p.m. pending # left hepatic cyst - incidental finding on CT abdomen Goals of care discussed with the patient for over 20 minutes. Full code Plan discussed with Dr. Boykin Plan discussed with: Patient Date of Service: Sep 30, 2024 Billing Provider: LARISA CAO MD Common Visit Codes: [id number] INP/OBS CARE(HIGH) SKYLER ARIZMENDI RESIDENT Sep 30, 2024 18:31 LARISA CAO MD Oct 01, 2024 22:53
[2024-09-30] MEDS: ACETAMINOPHEN 325 MG TAB PO PRN (20:08)
[2024-10-01 05:00] VITALS: BP 97/58; PULSE 76; RESP 18; TEMP 98.4; O2SAT 93
[2024-10-01 06:00] LABS: Basophils # (auto) 0 10 ^3/uL (0-0.2); Basophils % (auto) 0.3 % (0.0-2.0); Eosinophils # (auto) 0 10 ^3/uL (0-0.8); Eosinophils % (auto) 0.4 % (0.0-7.0); Hematocrit 38.9 % (41.0-53.0); Lymphocytes # (auto) 2.5 10 ^3/uL (0.4-5.4); Lymphocytes % (auto) 30.1 % (10.0-50.0); Mean Corpuscular Hemoglobin 27.6 pg (28.0-32.0); Mean Corpuscular Hgb Conc. 33.5 g/dL (32.0-36.0); Mean Corpuscular Volume 82.3 fL (80.0-100.0); Monocytes # (auto) 0.8 10 ^3/uL (0-1.3); Monocytes % (auto) 9.9 % (0.0-12.0); Neutrophils # (auto) 4.9 10 ^3/uL (1.6-8.6); Neutrophils % (auto) 59.3 % (37.0-80.0); Platelet Count (auto) 116 10^3/uL (140-450); Red Blood Cells 4.73 10^6/uL (4.5-5.90); Red Cell Distribution Width 14.1 % (11.8-14.3); White Blood Cell 8.2 10^3/uL (4.4-10.8)
[2024-10-01 06:09] LABS: Chloride 102 mmol/L (98-107); Potassium 3.8 mmol/L (3.5-5.1); Sodium 137 mmol/L (136-145)
[2024-10-01 06:10] LABS: Anion Gap 7 (5-15); Calcium 9.7 mg/dL (8.7-10.4); Carbon Dioxide 28 mmol/L (20-31)
[2024-10-01 06:15] LABS: BUN/Creatinine Ratio 12.9 (10.0-20.0); Blood Urea Nitrogen 12 mg/dL (9-23); Glucose 115 mg/dL (74-106)
[2024-10-01 08:06] LABS: PSA Free 0.32 ng/mL; Prostate Specific Antigen 1.8 ng/mL (0.0-4.0)
[2024-10-01 09:00] VITALS: BP 107/60; PULSE 76; RESP 17; TEMP 98.7; O2SAT 96
[2024-10-01] MEDS: FINASTERIDE 5 MG TAB PO SCH (09:07)
[2024-10-01] MEDS: D5W 5% 1,000 ML IV ONE (09:08)
[2024-10-01 13:00] VITALS: BP 102/60; PULSE 77; RESP 17; TEMP 98.4; O2SAT 96
[2024-10-01] MEDS: DESMOPRESSIN ACET 4 MCG/1 ML AMPULE IV ONE (15:41)
[2024-10-01] MEDS: D5W 5% 1,000 ML IV SCH (15:42)
--- NOTE | 2024-10-01 16:56 | DVHPNRES ---
Progress Note Date Seen: Oct 01, 2024 Resident Creating Document: BONY ARIZMENDIYULY RESIDENT Medical Necessity Reason Pt with a Central, PICC or Fol: Yes The following are medically ne: Witt Catheter Subjective Review of Systems Patient is a 58-year-old male with no significant past medical history presented to the ER with a chief complaint of pain on urination and hesitancy and dribbling for the past 3-4 days. The patient reported that he had difficulty initiating urination, frequency, hesitancy, nocturia, dribbling of urine and he was more able to pass only small amount of urine even after straining for a long period. Patient also reported constipation the last few days. Patient denied fever, chills, nausea, vomiting, patient had large suprapubic distention of the bladder. Abdominal pelvic CT showed markedly distended bladder with bilateral large bladder diverticulum , moderate hydronephrosis, prostatomegaly. Witt's catheter was inserted which drained 2000 mL of urine shortly after catheterization. Past medical history: No significant Past surgical history: No significant Family history: None Social history: Lives with family, no PCP, no medication at home, no smoking alcohol drug use Review of symptoms 09/30- Patient was seen and examined at the bedside. Patient was alert and oriented to time, place and person and responding to all questions appropriately. Patient had a urine output of about 7.5 L up to the time of examination in the morning at 9:00 a.m. patient's serum sodium on admission was 121 millimole/L which improved to 136 mmol/L. Patient was given a bolus of Ringer's lactate 1 L. serum sodium was repeated at 1:00 p.m. which resulted at 140 mmoll/L following which patient was given D5 W 1 L at 150 mL/hour. Repeat serum sodium check has been scheduled for 9:00 p.m. 10/01- Patient was seen and examined at the bedside. Patient was alert and oriented to time, place and person and responding to all questions appropriately. Patient had a urine output of 3.4 L overnight. Serum sodium last night at 9 p.m. was 138 following which D 5 W 1 L at 150 mL over was given. Morning labs showed serum sodium 137 after which another D5W 1 L at 150 mL/hour was given. At 1:00 p.m. Serum sodium 138, D5W 1 L at 150 mL/hour given along with desmopressin 2 mcg IV Objective vital signs Vital Sign Date Time Temp Pulse Resp B/P (MAP) Pulse Ox O2 Delivery O2 Flow Rate FiO2 10/01/24 13:00 98.4 77 17 102/60 (74) 96 98.4 10/01/24 08:08 Room Air* 0 21 Total Intake and Output 09/30/24 09/30/24 10/01/24 15:00 23:00 07:00 Intake Total 750 ml 500 ml Output Total 0 ml Balance 750 ml 500 ml medications Current Medications Medications Dose Ordered Sig/Constantin Route Start Time Stop Time Status Last Admin Dose Admin Sodium Chloride 10 ml Q8HR IV 09/29/24 22:00 10/01/24 14:09 10 ML Acetaminophen 650 mg Q6HP PRN PO 09/29/24 21:00 09/30/24 20:08 650 MG Morphine Sulfate 2 mg Q4HPRN PRN IV 09/29/24 21:00 Enoxaparin Sodium 40 mg DAILY SC 09/29/24 21:00 10/01/24 09:07 40 MG Nitroglycerin 0.4 mg Q5MINP PRN SL 09/29/24 21:00 Morphine Sulfate 2 mg Q30M PRN IV 09/29/24 21:00 Ceftriaxone Sodium 50 ml @ 100 mls/hr DAILY@09 IV 09/30/24 09:00 10/01/24 09:07 100 MLS/HR Ondansetron HCl 4 mg Q6HPRN PRN IV 09/29/24 23:00 Tamsulosin HCl 0.4 mg QPM PO 09/30/24 18:00 09/30/24 18:05 0.4 MG Finasteride 5 mg DAILY PO 10/01/24 10:00 10/01/24 09:07 5 MG Dextrose 1,000 ml @ 150 mls/hr Q6H40M IV 10/01/24 14:15 10/01/24 15:42 150 MLS/HR Examination Physical Examination Gen - no pallor, no icterus, no cyanosis, no clubbing, no LAD, no edema . Skin - Patients skin is warm and dry. HEENT - normocephalic, atraumatic, moist mucous membranes. Neck - full ROM, no LAD, no JVD. Pulmonary - B/L vesicular breath sounds. no crackles , no wheezing, no stridor. cardiovascular - normal S1,S2 heard. no murmurs heard. peripheral pulses normal radial 2+, pedal 2+. capillary refill normal <2 secs. GI - soft abdomen without tenderness to palpation . no hepatospleenomegaly. Bowel sounds normoactive Neurological - Patient is A/O X 3 . Bilateral upper extremity strength 5/5, bilateral lower extremity strength 5/5, no facial droop, normal speech, no tremor, no sensory deficiets. Rectal examination- nontender, firm swelling felt in the anterior anterior wall of the anal canal laboratory and microbiology Laboratory Tests 10/01/24 12:52 10/01/24 05:45 Test 10/01/24 05:45 Range/Units Serum Glucose 115 H 74-106 mg/dL Microbiology Date/Time Source Procedure Growth Status 09/30/24 07:30 Blood Blood Culture - Preliminary NO GROWTH AFTER 24 HOURS OF INCUBATION. Resulted 09/30/24 06:17 Voided Urine Urine Culture - Preliminary Resulted Problem List/Assessment/Plan Problem List/Assessment/Plan Assessment and plan # Acute urinary retention due to BPH # bilateral bladder diverticula # bilateral hydronephrosis - CT abdomen pelvis without contrast showed markedly distended bladder, bilateral bladder diverticula, moderate hydronephrosis, prostatomegaly - Witt's catheter inserted following which about 7000 mL of urine was removed in a controlled manner -continued on Witt's catheter # ?UTI -leukocytosis seen -patient is started on ceftriaxone 1 g IV daily - WBC count improving - urine culture - preliminary shows no growth # Enlarged prostate likely BPH - firm, nontender mass felt on rectal exam - CT abdomen pelvis findings as above - free PSA and total PSA pending - urology consult who recommended discharging patient home with Witt's and outpatient follow up for cystoscopy # Hyponatremia # rapid correction of hyponatremia - on admission patient had serum sodium 121 which increased to 136 following insertion of Witt catheter and removal of about 7 L of urine, only 1 L of normal saline was given. - patient had large urine output and was mildly hypotensive with SBP in the 90s - ringer lactate 1 L bolus given - sodium recheck at 1:00 p.m. was at 140 following which 1 L of D5W at 150 mL/hour given - recheck sodium at 9:00 p.m. 09/30 was at 138- 1 L of D5W at 150 mL/hour given - 10/01- morning sodium 137 1 L of D5W at 150 mL/hour given - 10/01- afternoon sodium at 1:00 p.m. 138- 1 L of D5W at 150 mL/hour given along with desmopressin. # left hepatic cyst - incidental finding on CT abdomen Goals of care discussed with the patient for over 30 minutes. Full code Plan discussed with Dr. Boykin Plan discussed with: Patient My Orders My Orders Orders - SKYLER ARIZMENDI Procedure Category Date Status Time Discontinue Tele ALEKS 09/30/24 In Process 20:21 Transfer Orders XFER 09/30/24 Transmitted 20:21 Strict I & O ALEKS 10/01/24 In Process 07:12 Sodium LAB 10/01/24 Logged 21:00 Date of Service: Oct 01, 2024 Billing Provider: LARISA CAO MD Common Visit Codes: [id number] INP/OBS CARE(HIGH) SKYLER ARIZMENDI Oct 01, 2024 16:56 LARISA CAO MD Oct 01, 2024 22:43
[2024-10-01 17:16] VITALS: BP 104/70; PULSE 78; RESP 16; TEMP 98.2; O2SAT 96
[2024-10-01 20:00] VITALS: PULSE 82; RESP 19; O2SAT 91
[2024-10-01 21:00] VITALS: BP 111/65; PULSE 74; RESP 18; TEMP 97.8; O2SAT 92
[2024-10-02] VITALS (8 sets, daily range): BP systolic 119–144; BP diastolic 67–91; PULSE 62–85; RESP 18–20; TEMP 97.5–98.9; O2SAT 91–97
[2024-10-02 05:41] LABS: Basophils # (auto) 0 10 ^3/uL (0-0.2); Basophils % (auto) 0.3 % (0.0-2.0); Eosinophils # (auto) 0.1 10 ^3/uL (0-0.8); Eosinophils % (auto) 0.9 % (0.0-7.0); Hematocrit 36.9 % (41.0-53.0); Hemoglobin 12.4 g/dL (13.5-17.5); Lymphocytes # (auto) 2.3 10 ^3/uL (0.4-5.4); Lymphocytes % (auto) 24.4 % (10.0-50.0); Mean Corpuscular Hemoglobin 27.6 pg (28.0-32.0); Mean Corpuscular Hgb Conc. 33.7 g/dL (32.0-36.0); Mean Corpuscular Volume 81.7 fL (80.0-100.0); Monocytes % (auto) 10.9 % (0.0-12.0); Neutrophils # (auto) 5.9 10 ^3/uL (1.6-8.6); Neutrophils % (auto) 63.5 % (37.0-80.0); Platelet Count (auto) 114 10^3/uL (140-450); Red Blood Cells 4.52 10^6/uL (4.5-5.90); Red Cell Distribution Width 13.6 % (11.8-14.3); White Blood Cell 9.2 10^3/uL (4.4-10.8)
[2024-10-02 05:49] LABS: Chloride 93 mmol/L (98-107); Potassium 3.6 mmol/L (3.5-5.1)
[2024-10-02 05:50] LABS: Anion Gap 6 (5-15); Carbon Dioxide 26 mmol/L (20-31)
[2024-10-02 05:51] LABS: Calcium 9.1 mg/dL (8.7-10.4)
[2024-10-02 05:55] LABS: Glucose 111 mg/dL (74-106)
[2024-10-02 05:56] LABS: BUN/Creatinine Ratio 14.5 (10.0-20.0); Blood Urea Nitrogen 11 mg/dL (9-23)
[2024-10-02 05:59] LABS: Sodium 125 mmol/L (136-145)
[2024-10-02 18:48] LABS: Chloride 92 mmol/L (98-107); Potassium 4.1 mmol/L (3.5-5.1); Sodium 125 mmol/L (136-145)
[2024-10-02 18:49] LABS: Anion Gap 7 (5-15); Calcium 9.8 mg/dL (8.7-10.4); Carbon Dioxide 26 mmol/L (20-31)
[2024-10-02 18:54] LABS: BUN/Creatinine Ratio 12.9 (10.0-20.0); Blood Urea Nitrogen 9 mg/dL (9-23); Glucose 105 mg/dL (74-106)
--- NOTE | 2024-10-02 21:10 | DVHPNRES ---
Progress Note Date Seen: Oct 02, 2024 Resident Creating Document: BONY ARIZMENDIYULY RESIDENT Medical Necessity Reason Pt with a Central, PICC or Fol: Yes The following are medically ne: Witt Catheter Subjective Review of Systems Patient is a 58-year-old male with no significant past medical history presented to the ER with a chief complaint of pain on urination and hesitancy and dribbling for the past 3-4 days. The patient reported that he had difficulty initiating urination, frequency, hesitancy, nocturia, dribbling of urine and he was more able to pass only small amount of urine even after straining for a long period. Patient also reported constipation the last few days. Patient denied fever, chills, nausea, vomiting, patient had large suprapubic distention of the bladder. Abdominal pelvic CT showed markedly distended bladder with bilateral large bladder diverticulum , moderate hydronephrosis, prostatomegaly. Witt's catheter was inserted which drained 2000 mL of urine shortly after catheterization. Past medical history: No significant Past surgical history: No significant Family history: None Social history: Lives with family, no PCP, no medication at home, no smoking alcohol drug use Review of symptoms 09/30- Patient was seen and examined at the bedside. Patient was alert and oriented to time, place and person and responding to all questions appropriately. Patient had a urine output of about 7.5 L up to the time of examination in the morning at 9:00 a.m. patient's serum sodium on admission was 121 millimole/L which improved to 136 mmol/L. Patient was given a bolus of Ringer's lactate 1 L. serum sodium was repeated at 1:00 p.m. which resulted at 140 mmoll/L following which patient was given D5 W 1 L at 150 mL/hour. Repeat serum sodium check has been scheduled for 9:00 p.m. 10/01- Patient was seen and examined at the bedside. Patient was alert and oriented to time, place and person and responding to all questions appropriately. Patient had a urine output of 3.4 L overnight. Serum sodium last night at 9 p.m. was 138 following which D 5 W 1 L at 150 mL over was given. Morning labs showed serum sodium 137 after which another D5W 1 L at 150 mL/hour was given. At 1:00 p.m. Serum sodium 138, D5W 1 L at 150 mL/hour given along with desmopressin 2 mcg IV 10/02- patient was seen and examined at the bedside. Was alert and oriented to time, place and person. Patient had a urine output of 3 L overnight. Serum sodium at 9 p.m. 132, at 5:00 a.m. in the morning 125 following which patient was put on fluid restriction 500 mL per day. Patient's serum sodium at 6 in the evening at 125. Patient is alert and oriented and does not report of any symptoms of headache, dizziness, focal weakness. Objective vital signs Vital Sign Date Time Temp Pulse Resp B/P (MAP) Pulse Ox O2 Delivery O2 Flow Rate FiO2 10/02/24 16:48 98.5 74 18 125/83 (97) 94 98.5 10/02/24 08:00 Room Air* 0 21 Total Intake and Output 10/01/24 10/01/24 10/02/24 15:00 23:00 07:00 Intake Total 1975 ml 1080 ml Output Total 2900 ml 600 ml Balance -925 ml 480 ml medications Current Medications Medications Dose Ordered Sig/Constantin Route Start Time Stop Time Status Last Admin Dose Admin Sodium Chloride 10 ml Q8HR IV 09/29/24 22:00 10/02/24 11:46 10 ML Acetaminophen 650 mg Q6HP PRN PO 09/29/24 21:00 10/01/24 22:37 650 MG Morphine Sulfate 2 mg Q4HPRN PRN IV 09/29/24 21:00 Enoxaparin Sodium 40 mg DAILY SC 09/29/24 21:00 10/02/24 09:10 40 MG Nitroglycerin 0.4 mg Q5MINP PRN SL 09/29/24 21:00 Morphine Sulfate 2 mg Q30M PRN IV 09/29/24 21:00 Ceftriaxone Sodium 50 ml @ 100 mls/hr DAILY@09 IV 09/30/24 09:00 10/02/24 09:10 100 MLS/HR Ondansetron HCl 4 mg Q6HPRN PRN IV 09/29/24 23:00 Tamsulosin HCl 0.4 mg QPM PO 09/30/24 18:00 10/02/24 16:28 0.4 MG Finasteride 5 mg DAILY PO 10/01/24 10:00 10/02/24 09:10 5 MG Examination Physical Examination Gen - no pallor, no icterus, no cyanosis, no clubbing, no LAD, no edema . Skin - Patients skin is warm and dry. HEENT - normocephalic, atraumatic, moist mucous membranes. Neck - full ROM, no LAD, no JVD. Pulmonary - B/L vesicular breath sounds. no crackles , no wheezing, no stridor. cardiovascular - normal S1,S2 heard. no murmurs heard. peripheral pulses normal radial 2+, pedal 2+. capillary refill normal <2 secs. GI - soft abdomen without tenderness to palpation . no hepatospleenomegaly. Bowel sounds normoactive Neurological - Patient is A/O X 3 . Bilateral upper extremity strength 5/5, bilateral lower extremity strength 5/5, no facial droop, normal speech, no tremor, no sensory deficiets. Rectal examination- nontender, firm swelling felt in the anterior anterior wall of the anal canal laboratory and microbiology Laboratory Tests 10/02/24 17:52 10/02/24 05:02 Test 10/02/24 17:52 Range/Units Serum Glucose 105 74-106 mg/dL Microbiology Date/Time Source Procedure Growth Status 09/30/24 07:30 Blood Blood Culture - Preliminary NO GROWTH AFTER 48 HOURS OF INCUBATION. Resulted 09/30/24 06:17 Voided Urine Urine Culture - Final Complete Problem List/Assessment/Plan Problem List/Assessment/Plan Assessment and plan # Acute urinary retention due to BPH # bilateral bladder diverticula # bilateral hydronephrosis - CT abdomen pelvis without contrast showed markedly distended bladder, bilateral bladder diverticula, moderate hydronephrosis, prostatomegaly - Witt's catheter inserted following which about 7000 mL of urine was removed in a controlled manner -continued on Witt's catheter # ?UTI -leukocytosis seen -patient is started on ceftriaxone 1 g IV daily. Stopped on 10/02 - WBC count improving - urine culture - final urine culture shows no growth after 48 hours # Enlarged prostate likely BPH - firm, nontender mass felt on rectal exam - CT abdomen pelvis findings as above - free PSA and total PSA pending - urology consult who recommended discharging patient home with Witt's and outpatient follow up for cystoscopy # Hyponatremia # rapid correction of hyponatremia - on admission patient had serum sodium 121 which increased to 136 following insertion of Witt catheter and removal of about 7 L of urine, only 1 L of normal saline was given. - patient had large urine output and was mildly hypotensive with SBP in the 90s - ringer lactate 1 L bolus given - sodium recheck at 1:00 p.m. was at 140 following which 1 L of D5W at 150 mL/hour given - recheck sodium at 9:00 p.m. 09/30 was at 138- 1 L of D5W at 150 mL/hour given - 10/01- morning sodium 137 1 L of D5W at 150 mL/hour given - 10/01- afternoon sodium at 1:00 p.m. 138- 1 L of D5W at 150 mL/hour given along with desmopressin. - 10/02- sodium trends 132->125-> 123->125. Patient was on fluid restriction 500 mL per day # left hepatic cyst - incidental finding on CT abdomen Goals of care discussed with the patient for over 30 minutes. Full code Plan discussed with Dr. Boykin Plan discussed with: Patient Date of Service: Oct 02, 2024 Billing Provider: LARISA CAO MD Common Visit Codes: [id number] INP/OBS CARE(HIGH) SKYLER ARIZMENDI RESIDENT Oct 02, 2024 21:10 LARISA CAO MD Oct 03, 2024 09:12
[2024-10-03] VITALS (7 sets, daily range): BP systolic 96–116; BP diastolic 69–76; PULSE 66–88; RESP 16–18; TEMP 98.2–98.7; O2SAT 93–97
[2024-10-03 05:34] LABS: Basophils # (auto) 0 10 ^3/uL (0-0.2); Basophils % (auto) 0.4 % (0.0-2.0); Eosinophils # (auto) 0.1 10 ^3/uL (0-0.8); Eosinophils % (auto) 1.2 % (0.0-7.0); Hematocrit 43.2 % (41.0-53.0); Hemoglobin 14.5 g/dL (13.5-17.5); Lymphocytes # (auto) 2.2 10 ^3/uL (0.4-5.4); Lymphocytes % (auto) 27.6 % (10.0-50.0); Mean Corpuscular Hemoglobin 27.6 pg (28.0-32.0); Mean Corpuscular Hgb Conc. 33.7 g/dL (32.0-36.0); Monocytes # (auto) 0.8 10 ^3/uL (0-1.3); Monocytes % (auto) 9.3 % (0.0-12.0); Neutrophils % (auto) 61.5 % (37.0-80.0); Nucleated Red Blood Cells % 0.1 %; Platelet Count (auto) 144 10^3/uL (140-450); Red Blood Cells 5.26 10^6/uL (4.5-5.90); Red Cell Distribution Width 13.8 % (11.8-14.3); White Blood Cell 8.1 10^3/uL (4.4-10.8)
[2024-10-03 05:55] LABS: Anion Gap 6 (5-15); Carbon Dioxide 28 mmol/L (20-31); Chloride 97 mmol/L (98-107); Potassium 4.9 mmol/L (3.5-5.1)
[2024-10-03 05:57] LABS: Calcium 10.2 mg/dL (8.7-10.4)
[2024-10-03 06:01] LABS: Glucose 114 mg/dL (74-106)
[2024-10-03 06:02] LABS: BUN/Creatinine Ratio 11.2 (10.0-20.0); Blood Urea Nitrogen 10 mg/dL (9-23)
[2024-10-03 06:06] LABS: Sodium 131 mmol/L (136-145)
[2024-10-03 09:08] LABS: Protein, Urine 73.8 mg/dL (1-14)
[2024-10-03 09:11] LABS: Creatinine, Urine 62.06 mg/dL (30.0-125.0); Urine Protein/Creatinine Ratio 1.19
[2024-10-03 11:49] LABS: Calcium 10.2 mg/dL (8.7-10.4); Chloride 100 mmol/L (98-107); Potassium 4.5 mmol/L (3.5-5.1); Sodium 134 mmol/L (136-145)
[2024-10-03 11:50] LABS: Anion Gap 6 (5-15); Carbon Dioxide 28 mmol/L (20-31)
[2024-10-03 11:55] LABS: BUN/Creatinine Ratio 12.1 (10.0-20.0); Blood Urea Nitrogen 12 mg/dL (9-23); Glucose 107 mg/dL (74-106)
[2024-10-03] MEDS ORDERED: FIN5T PO (14:08)
[2024-10-03] MEDS ORDERED: TAMS-35 PO (14:08)
--- NOTE | 2024-10-03 20:25 | DVHDSRES ---
Discharge Summary Date of Admission Resident Creating Document: SKYLER ARIZMENDI RESIDENT Sep 29, 2024 at 20:48 Date of Discharge: Oct 03, 2024 Admitting Diagnosis #Acute retention of urine likely due to benign enlargement of the prostate #Dysuria, dribbling of urine, urgency, hesitancy, urinary frequency likely due to UTI with BPH #Benign enlargement of the prostate #Suspected UTI # bilateral hydronephrosis likely due to acute retention of urine due to BPH #Hyponatremia likely due to vomiting # nausea and vomiting likely due to UTI #Bilateral bladder diverticul likely due to acute retention of urine due to BPH #Leukocytosis likely due to UTI # Left hepatic cyst Wounds: no wounds Labs/Diagnostic Data: Laboratory Results Test 10/03/24 11:24 10/03/24 08:47 10/03/24 05:20 09/30/24 06:17 Sodium Level 134 mmol/L (136-145) Potassium Level 4.5 mmol/L (3.5-5.1) Chloride Level 100 mmol/L (98-107) Carbon Dioxide Level 28 mmol/L (20-31) Anion Gap 6 (5-15) Blood Urea Nitrogen 12 mg/dL (9-23) Creatinine 0.99 mg/dL (0.700-1.30) Glomerular Filtration Rate Calc 87 mL/min (>90) BUN/Creatinine Ratio 12.1 (10.0-20.0) Serum Glucose 107 mg/dL (74-106) Calcium Level 10.2 mg/dL (8.7-10.4) Urine Osmolality 241 mOsm/kg Urine Creatinine 62.06 mg/dL (30.0-125.0) Urine Protein/Creatinine Ratio 1.19 Urine Sodium 18 mmol/L (40-220) Urine Total Protein 73.8 mg/dL (1-14) White Blood Count 8.1 10^3/uL (4.4-10.8) Red Blood Count 5.26 10^6/uL (4.5-5.90) Hemoglobin 14.5 g/dL (13.5-17.5) Hematocrit 43.2 % (41.0-53.0) Mean Corpuscular Volume 82.0 fL (80.0-100.0) Mean Corpuscular Hemoglobin 27.6 pg (28.0-32.0) Mean Corpuscular Hemoglobin Concent 33.7 g/dL (32.0-36.0) Red Cell Distribution Width 13.8 % (11.8-14.3) Platelet Count 144 10^3/uL (140-450) Mean Platelet Volume 10.4 fL (6.9-10.8) Neutrophils (%) (Auto) 61.5 % (37.0-80.0) Lymphocytes (%) (Auto) 27.6 % (10.0-50.0) Monocytes (%) (Auto) 9.3 % (0.0-12.0) Eosinophils (%) (Auto) 1.2 % (0.0-7.0) Basophils (%) (Auto) 0.4 % (0.0-2.0) Neutrophils # (Auto) 5.0 10 ^3/uL (1.6-8.6) Lymphocytes # (Auto) 2.2 10 ^3/uL (0.4-5.4) Monocytes # (Auto) 0.8 10 ^3/uL (0-1.3) Eosinophils # (Auto) 0.1 10 ^3/uL (0-0.8) Basophils # (Auto) 0 10 ^3/uL (0-0.2) Nucleated Red Blood Cells 0.1 % Serum Osmolality 274 mOsm/kg (278-298) Urine Color Colorless (Yellow) Urine Clarity Clear (Clear) Urine pH 6.0 (5.0-9.0) Urine Specific [place] 1.004 (1.001-1.035) Urine Protein Negative (Negative) Urine Ketones Negative (Negative) Urine Blood 1+ /uL (Negative) Urine Nitrite Negative (Negative) Urine Bilirubin Negative (Negative) Urine Urobilinogen Normal mg/dL (Negative) Urine Leukocyte Esterase Negative /uL (Negative) Urine RBC <1 /hpf (0 - 3) Urine WBC <1 /hpf (0 - 3) Urine Squamous Epithelial Cells None seen /hpf (<5) Urine Bacteria None seen /hpf (None Seen) Urine Glucose Normal mg/dL (Normal) Urine Opiates Screen Neg (NEGATIVE) Urine Fentanyl Screen Neg (NEGATIVE) Urine Barbiturates Screen Neg (NEGATIVE) Urine Phencyclidine Screen Neg (NEGATIVE) Urine Amphetamines Screen Neg (NEGATIVE) Urine Benzodiazepines Screen Neg (NEGATIVE) Urine Cocaine Screen Neg (NEGATIVE) Urine Cannabinoids Screen Neg (NEGATIVE) Test 09/30/24 04:07 09/29/24 19:43 Hemoglobin A1c 6.1 % A1C (<5.7) Total Bilirubin 1.1 mg/dL (0.2-1.0) Aspartate Amino Transferase (AST) 43 U/L (13-40) Alanine Aminotransferase (ALT) 33 U/L (7-40) Alkaline Phosphatase 66 U/L (46-116) Total Protein 7.0 g/dL (5.7-8.2) Albumin 4.5 g/dL (3.2-4.8) Free Prostate Specific Antigen 0.32 ng/mL (N/A) Percent Free Prostate Specific Ag 17.8 % (.) Prostate Specific Antigen Total 1.8 ng/mL (0.0-4.0) Lactic Acid Level 1.8 mmol/L (0.4-2.0) Magnesium Level 1.6 mg/dL (1.6-2.6) Plasma/Serum Blood Alcohol < 3.0 mg/dL (<10) Other Laboratory Tests 10/03/24 11:24 10/03/24 05:20 Brief Hx & Hospital Course: Patient is a 58-year-old male with no significant past medical history presented to the ER with a chief complaint of suprapubic pain and difficulty urinating. CT abdomen pelvis without contrast was done which showed markedly distended bladder, bilateral bladder diverticula, moderate hydronephrosis, prostatomegaly. Witt's catheter was inserted which initially removed 2000 mL of urine in stepwise manner and during the night of admission about 7 L of urine was removed. Patient initially presented with hyponatremia sodium at 121mmol/L, which after removal of urine with Witt's catheter over character to 136. To correct the rapid over-correction of sodium patient was given multiple doses of D5W that is supplemented with desmopressin. Patient's sodium levels at discharge 134mmol/L. Patient during the course of hospital stay did not report altered mental status, focal neurological deficits. Urology were consulted who recommended outpatient follow up for cystoscopy. Patient discharged in stable condition with Witt's to leg, tamsulosin, finasteride and advised to follow up in the Urology outpatient Clinic for further workup of prostatomegaly. Consults/Reason for consult Urology consultation for acute urinary obstruction likely due to BPH Operations or Procedures CT abdomen pelvis showing markedly distended bladder, bilateral bladder diverticula, moderate hydronephrosis, prostatomegaly, likely bladder outlet obstruction Condition at Discharge: Good Final Diagnosis/Problems List # Acute urinary retention due to BPH # bilateral bladder diverticula # bilateral hydronephrosis # ?UTI # Enlarged prostate likely BPH # Hyponatremia # rapid correction of hyponatremia Discharge Disposition: Home Discharge Instruct/Medications Diet: Regular Activity: No Restrictions, As Tolerated Follow Up/Referral: Follow up in the D/c clinic Follow up in the Urology Outpatient clinic with Dr. Chase Mayen in 2-3 weeks Medications: as per EMR Discharge Statement: "Patient was advised to return to the ER or call 911 if any headaches, dizziness, shortness of breath, chest pain, abdominal pain, bleeding, fevers, or worsening of medical condition. Patient was counseled about treatment plan, medications, possible side effects, patientverbalized understanding. All questions were answered to the best of my ability. This discharge took greater then 30 minutes in planning, reviewing documentation, counseling the patient, and discussing with other team members." ASSESSMENT ASSESSMENT Assessment Acute Urinary Retention SKYLER ARIZMENDI RESIDENT Oct 03, 2024 20:25
== END 2024-10-03 17:30 | disposition home or self-care (01) | DRG 501 ==
LOC: ER 17:12 → OVERFLOW 20:48 → UNDODEPER 09-30 01:28 → TELE-E-ADS 09-30 16:47 → EAST 09-30 20:34
PROVIDERS: ADMIT Student in an Organized Health Care Education/Training Program; ATTEND Student in an Organized Health Care Education/Training Program
DX: N40.1 Benign prostatic hyperplasia with lower urinary tract symptoms (principal); E87.1 Hypo-osmolality and hyponatremia; R65.10 Systemic inflammatory response syndrome (SIRS) of non-infectious origin without acute organ dysfunction; K76.89 Other specified diseases of liver; N32.3 Diverticulum of bladder; R33.8 Other retention of urine; N13.6 Pyonephrosis; Z83.3 Family history of diabetes mellitus
CPT/HCPCS: 36415; 74176; 80048; 80053; 80307; 80320; 81001; 82570; 83036; 83605; 83735; 83930; 83935; 84154; 84156; 84295; 84300; 85025; 87040; 87086; 99291; G0378

== ENCOUNTER 2024-11-16 12:18 | Emergency (ER) | payer MEDICAID ==
[~2024-11-16] VITALS: Ht 172.7 cm; Wt 74.3 kg
[~2024-11-16 12:18] MED LIST changes: -ACET1CAP14 PO; +FIN5T PO; +TAMS-35 PO
--- NOTE | 2024-11-16 12:45 | ED.PDOC ---
History of Present Illness HPI Comments 58 y.o male presents to the ED for Witt catheter bag replacement s/p ripping. Patient reports he has a Witt in x 1 month due to prostate problems diagnosed at this ED, and states he is awaiting appointment to see a urologist since no replacement of the bag has been done. Patient presents asymptomatic and has no other complaints. He denies any medical, surgical history or allergies. Time Seen by MD: 12:40 Primary Care Provider: NONE Reviewed Notes: Nurses Notes, Medications, Allergies Allergies: Coded Allergies: NO KNOWN ALLERGIES (Unverified , 03/13/24) Home Meds Active Scripts Tamsulosin Hcl (Flomax) 0.4 Mg Cap, 0.4 MG PO QPM for 30 Days, #30 CAP 1 Refill Prov:RICHARD CHIN RESIDENT 10/03/24 Finasteride (Finasteride) 5 Mg Tab, 5 MG PO DAILY for 30 Days, #30 TAB 1 Refill Prov:RICHARD CHIN RESIDENT 10/03/24 Information Source: Patient Mode of Arrival: Ambulatory Severity: Moderate Timing: Days Duration: Since onset Past Medical History PAST MEDICAL HISTORY: Denies Surgical History: Denies all surgeries Family History Family History: Unknown Social History Smoker: Non-Smoker Alcohol: Denies ETOH Use Drugs: Denies Drug Use Lives In: Home Constitutional: denies: chills, diaphoresis, fatigue, fever, malaise, sweats, weakness, others EENTM: denies: blurred vision, double vision, ear bleeding, ear discharge, ear drainage, ear pain, ear ringing, eye pain, eye redness, hearing loss, mouth pain, mouth swelling, nasal discharge, nose bleeding, nose congestion, nose pain, photophobia, tearing, throat pain, throat swelling, voice changes, others Respiratory: denies: cough, hemoptysis, orthopnea, SOB at rest, shortness of breath, SOB with excertion, stridor, wheezing, others Cardiovascular: denies: chest pain, dizzy spells, diaphoresis, Dyspnea on exertion, edema, irregular heart beat, left arm pain, lightheadedness, palpitations, PND, syncope, others Gastrointestinal: denies: abdomen distended, abdominal pain, blood streaked bowels, constipated, diarrhea, dysphagia, difficulty swallowing, hematemesis, melena, nausea, poor appetite, poor fluid intake, rectal bleeding, rectal pain, vomiting, others Genitourinary: denies: burning, dysuria, flank pain, frequency, hematuria, incontinence, penile discharge, penile sore, pain, testicle pain, testicle swelling, urgency, others Neurological: denies: dizziness, fainting, headache, left sided numbness, left sided weakness, numbness, paresthesia, pre-existing deficit, right sided numbness, right sided weakness, seizure, speech problems, tingling, tremors, weakness, others Musculoskeletal: denies: back pain, gout, joint pain, joint swelling, muscle pain, muscle stiffness, neck pain, others Integumetry: denies: bruises, change in color, change in hair/nails, dryness, laceration, lesions, lumps, rash, wounds, others Allergic/Immunocompromised: denies: Difficulty Healing, Frequent Infections, Hives, Itching, others Hematologic/Lymphatic: denies: anemia, blood clots, easy bleeding, easy bruising, swollen glands, others Endocrine: denies: excessive hunger, excessive sweating, excessive thirst, excessive urination, flushing, intolerance to cold, intolerance to heat, unexplained weight gain, unexplained weight loss, others Psychiatric: denies: anxiety, bipolar disorder, depression, hopeless, panic disorder, schizophrenia, sleepless, suicidal, others All Other Systems: Reviewed and Negative Physical Exam General Appearance: No Apparent Distress HEENT: Normal ENT Inspection, Pharynx Normal, TMs Normal Neck: Full Range of Motion, Non-Tender, Normal, Normal Inspection Respiratory: Chest Non-Tender, Lungs Clear, No Accessory Muscle Use, No Respiratory Distress, Normal Breath Sounds Cardiovascular: No Edema, No JVD, No Murmur, No Gallop, Normal Peripheral Pulses, Regular Rate/Rhythm Breast Exam: Deferred Gastrointestinal: No Organomegaly, Non Tender, No Pulsatile Mass, Normal Bowel Sounds, Soft Genitalia: Other (Witt catheter in place but the Witt catheter bag seems to be malfunction) Pelvic: Deferred Rectal: Deferred Extremities: No calf tenderness, Normal capillary refill, Normal inspection, Normal range of motion, Non-tender, No pedal edema Musculoskeletal : Apperance: Normal Neurologic: Alert, geometry tutor II-XII nml as Tested, No Motor Deficits, Normal Affect, Normal Mood, No Sensory Deficits Cerebellar Function: Normal Reflexes: Normal Skin: Dry, Normal Color, Warm Lymphatic: No Adenopathy Was a procedure done? Was a procedure done?: No Differential Dx Considerations may include: Witt Catheter bag replacement X-Ray, Labs, Meds, VS Vital Signs Date Time Temp Pulse Resp B/P (MAP) Pulse Ox O2 Delivery O2 Flow Rate FiO2 11/16/24 13:04 97.9 84 18 124/76 (92) 97 This time, the patient had the Witt catheter bag replaced. The patient is being discharged and will follow up with the primary care doctor The patient will return to the emergency department the condition worsens. Time of 1ST Reevaluation: 12:45 Reevaluation 1ST: Unchanged Patient Education/Counseling: Diagnosis, Treatment, Prognosis, Need For Follow Up Family Education/Counseling: No Family Present Departure 1 Departure Time of Disposition: 14:18 Impression: Primary Impression: Witt catheter problem Qualified Codes: T83.9XXA - Unspecified complication of genitourinary prosthetic device, implant and graft, initial encounter Disposition: 01 HOME / SELF CARE / HOMELESS Condition: Fair Discharged With: Self Critical Care Note Critical Care Time?: No Stability Stability form required: No I personally scribed for HARLAN ZELAYA MD ([email or web address]) on 11/16/24 at 12:45. Electronically submitted by Ramonita Plaza ([email or web address]). HARLAN ZELAYA MD Nov 16, 2024 12:45
[2024-11-16 14:28] VITALS: BP 126/80; PULSE 94; RESP 16; TEMP 98; O2SAT 96
== END 2024-11-16 14:30 | disposition home or self-care (01) ==
LOC: ER 12:28
DX: T83.9XXA Unspecified complication of genitourinary prosthetic device, implant and graft, initial encounter (principal); Z79.899 Other long term (current) drug therapy

== ENCOUNTER → 2024-12-22 | Outpatient (CLI) | payer MEDICAID ==
[2024-12-22 11:46] LABS: Basophils # (auto) 0 10 ^3/uL (0-0.2); Basophils % (auto) 0.4 % (0.0-2.0); Eosinophils # (auto) 0.1 10 ^3/uL (0-0.8); Eosinophils % (auto) 1.1 % (0.0-7.0); Hematocrit 46.4 % (41.0-53.0); Hemoglobin 14.8 g/dL (13.5-17.5); Lymphocytes # (auto) 2.1 10 ^3/uL (0.4-5.4); Lymphocytes % (auto) 26.6 % (10.0-50.0); Mean Corpuscular Hemoglobin 26.5 pg (28.0-32.0); Mean Corpuscular Hgb Conc. 31.9 g/dL (32.0-36.0); Monocytes # (auto) 0.6 10 ^3/uL (0-1.3); Monocytes % (auto) 7.3 % (0.0-12.0); Neutrophils # (auto) 5.1 10 ^3/uL (1.6-8.6); Neutrophils % (auto) 64.6 % (37.0-80.0); Nucleated Red Blood Cells % 0.1 %; Platelet Count (auto) 135 10^3/uL (140-450); Red Blood Cells 5.58 10^6/uL (4.5-5.90); Red Cell Distribution Width 13.3 % (11.8-14.3); White Blood Cell 7.9 10^3/uL (4.4-10.8)
[2024-12-22 12:24] LABS: Alanine Aminotransferase 17 U/L (7-40); Alkaline Phosphatase 77 U/L (46-116); Anion Gap 6 (5-15); BUN/Creatinine Ratio 14.3 (10.0-20.0); Blood Urea Nitrogen 13 mg/dL (9-23); Calcium 10.3 mg/dL (8.7-10.4); Carbon Dioxide 29 mmol/L (20-31); Chloride 102 mmol/L (98-107); LDL Cholesterol 93 mg/dL (< 100); Potassium 4.7 mmol/L (3.5-5.1); Sodium 137 mmol/L (136-145)
[2024-12-22 12:25] LABS: Aspartate Aminotransferase 17 U/L (13-40); Cholesterol 162 mg/dL (< 200); HDL Cholesterol 48 mg/dL (40-59)
[2024-12-22 12:26] LABS: Bilirubin, Total 0.5 mg/dL (0.2-1.0); Total Protein 7.6 g/dL (5.7-8.2)
[2024-12-22 12:29] LABS: Albumin 4.8 g/dL (3.2-4.8); Glucose 118 mg/dL (74-106); Triglycerides 162 mg/dL (< 150)
== END | disposition home or self-care (01) ==
LOC: LAB 11:19
PROVIDERS: ATTEND Internal Medicine
DX: Z00.01 Encounter for general adult medical examination with abnormal findings (principal)
CPT/HCPCS: 36415; 80053; 80061; 82306; 83036; 84443; 85025